=== PATIENT | female | born 1960 | race Caucasian/White ===

== ENCOUNTER → 2021-03-01 | Emergency (ER) | payer SELFPAY ==
[~2021-03-01] VITALS: Ht 157.5 cm; Wt 74.9 kg
[~2021-03-01] MED LIST: AMLODIPINE BESY10 MG PO; ASPIRIN EC81 MG PO; CIPRO500 MG PO; FLOMAX0.4 MG PO; KETOROLAC TROMETHAMINE 30 MG/ML VIAL IV STA; KETOROLAC TROMETHAMINE 30 MG/ML VIAL ONE; KETOROLAC TROMETHAMINE 60 MG/2 ML VIAL IM ONE; METFORMIN HCL500 MG PO; MOTRIN800 MG PO; Morphine 2mg Syringe 2 MG/ML SYR IV ONE; Morphine 4mg Syringe 4 MG/ML INJ IV ONE; Morphine 4mg Syringe 4 MG/ML INJ ONE; ONDANSETRON HCL 4 MG ORAL DISINTEGRATING TAB PO STA; ONDANSETRON HCL INJ 2MG/ML 2ML 2 MG/ML VIAL IV STA; ONDANSETRON HCL INJ 2MG/ML 2ML 2 MG/ML VIAL ONE; ONDANSETRON ODT4 MG PO; SODIUM CHLORIDE 0.9% 1000ML 1,000 ML IV STA; SODIUM CHLORIDE 0.9% 1000ML 1,000 ML ONE
== END | disposition home or self-care (01) ==
LOC: FSED 13:36
DX: N20.0 Calculus of kidney (principal)
CPT/HCPCS: 74176; 80053; 81003; 85025; 96374; 96375; 96376; 99283; J1885; J2270 ×2; J2405; J7030